=== PATIENT | male | born 1965 | race African-American/Black ===

== ENCOUNTER → 2021-03-13 | Outpatient (CLI) | payer OTHER ==
[~2021-03-13] MED LIST: ACETAMINOPHEN-1 EAC1 PO; AMLODIPINE BESY10 MG PO; CARVEDILOL25 MG PO; DIABETA 5MG TABL5 MG PO; GLUCOPHAGE1000 MG PO; HYDROCHLOROTHIA25 M1 PO; MICARDIS40 MG PO; NAPROSYN500 MG PO; ZPAK PO
== END ==
LOC: ULTRA 10:46
PROVIDERS: ATTEND Family Medicine
DX: R60.0 Localized edema (principal); M25.475 Effusion, left foot